=== PATIENT | female | born 1990 | race African-American/Black ===

== ENCOUNTER 2024-05-01 09:11 | Emergency (ER) | payer MEDICAID, SELFPAY ==
[2024-05-01 09:23] VITALS: BP 130/99; PULSE 110; TEMP 36.8; O2SAT 100; BMI 34.6
--- NOTE | 2024-05-01 10:30 | ED.GENADUL1 ---
HPI HPI - General Adult General Chief complaint: Abdominal Pain Stated complaint: ABDOMINAL PAIN, NAUSEA Time Seen by Provider: 05/01/24 09:49 Source: patient Mode of arrival: walk-in History of Present Illness HPI narrative: 33-year-old female to the emergency department with chief complaint of right upper quadrant pain. She reports it is a constant dull ache. She reports some mild nausea associated. She reports she has a history of both pancreatitis and kidney stones. She denies any fever, sweats, chills. She is in town visiting from [place]. She is s/p cholecystectomy remotely. She reports some blood in the urine. Related Data Home Medications ?Medication ?Instructions ?Recorded ?Confirmed medroxyprogesterone 10 mg tablet 10 mg PO BID 05/01/24 05/01/24 (Provera) Previous Rx's ?Medication ?Instructions ?Recorded cephalexin 500 mg capsule 500 mg PO BID 5 days #10 caps 05/01/24 Allergies Allergy/AdvReac Type Severity Reaction Status Date / Time ibuprofen Allergy Severe Hives Verified 05/01/24 09:33 ketamine Allergy Severe hives Verified 05/01/24 09:33 ketorolac (From Toradol) Allergy Severe Hives Verified 05/01/24 09:33 aspirin AdvReac Severe Hives Verified 05/01/24 09:33 droperidol AdvReac Intermediate Hallucinati Verified 05/01/24 09:33 ng haloperidol (From Haldol) AdvReac Intermediate Hallucinati Verified 05/01/24 09:33 ng metoclopramide (From Reglan) AdvReac Intermediate Hallucinati Verified 05/01/24 09:33 ng prochlorperazine (From AdvReac Intermediate Hallucinati Verified 05/01/24 09:33 Compazine) ng IV contrast AdvReac Severe Hives Uncoded 05/01/24 09:33 Opioid HPI Opioid Management Most Recent Opioid Data: Last Pain Scale 8 05/01/24 10:41 05/01/24 Last ED Pain Assessment 05/01/24 09:54 Last MAR Pain Assessment 05/01/24 10:41 Review of Systems ROS Status of ROS 10 or more systems reviewed and unremarkable except as noted in history and below [facility] Medical History (Updated 05/01/24 @ 11:38 by Darrin Pratt MD) History of biliary stent insertion ?Z98.890 - Other specified postprocedural states (ICD-10) Pancreatitis ?K85.90 - Acute pancreatitis without necrosis or infection, unspecified (ICD-10) Social History Little interest or pleasure in doing things: not at all Feeling down, depressed, or hopeless: not at all Exam Narrative Exam Narrative: VITALS: I have reviewed the triage vital signs. GENERAL: Well developed, well appearing adult in no acute distress. Child at the bedside. NEURO: Alert and oriented. Moves all extremities. Face is symmetric and expressive. EYES: PERRL. No scleral icterus or conjunctival injection. No discharge. HENT: Normocephalic, atraumatic. Hearing is grossly intact. Nares grossly patent and without discharge. Mucous membranes moist. NECK: No JVD. Patient moves neck without restriction. CARDIO: Rhythm regular. Normal rate. No murmur, rub, or gallop. Pulses equal bilaterally in the upper and lower extremity. No lower extremity edema. PULM: Lungs clear to auscultation in all levy. No wheezes, rales, or rhonchi. No conversational dyspnea. No splinting, stridor, or accessory muscle use. GI/: Abdomen is soft and non-tender. Normoactive bowel sounds. EXTREMITIES: Symmetric muscle bulk. No joint swelling. No clubbing, cyanosis, or deformity. SKIN: Warm and dry. Normal turgor. No rash or lesions appreciated. PSYCH: Mood, affect, and interaction is appropriate to the setting. Constitutional Vital Signs, click to edit/add: Last Vital Signs Temp 98.2 F 05/01/24 09:23 Pulse 110 H 05/01/24 09:23 Resp 16 05/01/24 09:23 BP 130/99 H 05/01/24 09:23 Pulse Ox 100 05/01/24 09:23 O2 Del Method Room Air 05/01/24 09:23 Course Vital Signs Vital signs: Vital Signs Temperature 98.2 F 05/01/24 09:23 Pulse Rate 110 H 05/01/24 09:23 Respiratory Rate 16 05/01/24 09:23 Blood Pressure 130/99 H 05/01/24 09:23 Pulse Oximetry 100 05/01/24 09:23 Oxygen Delivery Method Room Air 05/01/24 09:23 Temperature 98.2 F 10/14/24 09:23 Pulse Rate 110 H 05/01/24 09:23 Respiratory Rate 16 05/01/24 09:23 Blood Pressure 130/99 H 05/01/24 09:23 Pulse Oximetry 100 05/01/24 09:23 Oxygen Delivery Method Room Air 05/01/24 09:23 Medical Decision Making MDM Narrative Medical decision making narrative: Well-appearing 33-year-old female to the emergency department with chief complaint of right upper quadrant abdominal pain. Vital stable, the patient is afebrile. Her abdominal examination is benign. She is in no distress in the room. Child at the bedside. She reports that she has a ride home. I did review her records in [facility]. She has had 2 emergency department visits in the month of April on 04/20, 04/25. She was also seen in March on the , , 16, 13, 12, 11, 9, 3 in various emergency departments across the [facility]. She had multiple negative workups, including multiple negative CT scans. There seems to be an abnormal pattern regarding abdominal pain and ED presentations in this patient. Basic labs are ordered as medical screening exam. Will give her the benefit of doubt and treat the symptoms with oral medications. Lab work is unremarkable. Urinalysis is concerning for infection. Patient needed to leave and hurry and notified nurse. I went discussed findings with her. Will treat her with Keflex for UTI. She will follow-up with her doctors in [place]. Return precautions were discussed. All questions were answered. Patient was discharged home. Medical Records Medical records reviewed: Yes I reviewed the patient's medical records Lab Data Lab results reviewed: Yes I reviewed the patient's lab results Labs: Lab Results 05/01/24 05/01/24 Range/Units 10:27 10:40 WBC 4.4 (4.0-11.0) 10^3/uL RBC 4.91 (4.20-5.40) 10^6/uL Hgb 12.6 (12.0-16.0) g/dL Hct 41.1 (36.0-48.0) % MCV 83.7 (81.0-99.0) fL MCH 25.7 L (26.7-34.0) pg MCHC 30.7 (29.9-35.2) g/dL RDW 13.6 (11.0-15.0) % Plt Count 208 (150-450) 10^3/uL MPV 8.3 L (9.5-13.5) fL Neut % (Auto) 70.0 (43.0-75.0) % Lymph % (Auto) 21.2 (20.5-60.0) % [place] % (Auto) 6.6 (1.7-12.0) % Eos % (Auto) 1.8 (0.9-7.0) % Baso % (Auto) 0.2 (0.2-2.0) % Neut # (Auto) 3.1 (1.4-6.5) 10^3/uL Lymph # (Auto) 0.9 L (1.2-3.8) 10^3/uL [place] # (Auto) 0.3 (0.3-0.8) 10^3/uL Eos # (Auto) 0.1 (0.0-0.7) 10^3/uL Baso # (Auto) 0.0 (0.0-0.1) 10^3/uL Abs Immat Gran (auto) 0.01 (0.00-0.03) 10^3/uL Imm/Tot Granulo (auto) 0.2 (0.0-0.5) % Sodium 140 (136-145) mmol/L Potassium 4.7 (3.5-5.1) mmol/L Chloride 102 (98-107) mmol/L Carbon Dioxide 29.4 (21.0-32.0) mmol/L Anion Gap 13.3 BUN 9.0 (7.0-18.0) mg/dL Creatinine 0.85 (0.55-1.02) mg/dL Est GFR ( Amer) >60 (>=60 mL/min/1.73m^2) Est GFR (Non-Af Amer) >60 (>=60 mL/min/1.73m^2) BUN/Creatinine Ratio 10.6 Glucose 96 (74-106) mg/dL Calcium 9.6 (8.5-10.1) mg/dL Total Bilirubin 0.2 (0.2-1.0) mg/dL AST 14 L (15-37) U/L ALT 20 (14-59) U/L Alkaline Phosphatase 96 (46-116) U/L Total Protein 8.5 H (6.4-8.2) g/dL Albumin 3.9 (3.4-5.0) g/dL Globulin 4.6 g/dL Albumin/Globulin Ratio 0.8 Lipase 19.0 (16.0-77.0) U/L Serum HCG, Qual Negative (NEGATIVE) Urine Color Lt. yellow (YELLOW) Urine Clarity Clear (CLEAR) Urine pH 6.5 (5.0-9.0) Ur Specific [place] 1.020 (1.005-1.025) Urine Protein Negative (NEG/TRACE) mg/dL Urine Glucose (UA) Negative (NEGATIVE) mg/dL Urine Ketones Negative (NEGATIVE) mg/dL Urine Occult Blood Trace-i (NEGATIVE) Urine Nitrite Negative (NEGATIVE) Urine Bilirubin Negative (NEGATIVE) Urine Urobilinogen 0.2 (0.2-1.0) EU/dL Ur Leukocyte Esterase Small A (NEGATIVE) Urine RBC 2-5 A (0-2) #/HPF Urine WBC 2-5 A (NONE SEEN) #/HPF Ur Squamous Epith Cells Few A (NONE/RARE) #/LPF Urine Crystals None seen (None Seen) #/HPF Urine Bacteria Small A (NONE SEEN) #/HPF Urine Casts None seen (NONE SEEN) #/LPF Urine Mucus Trace A (NONE SEEN) Ur Culture Indicated? Yes Discharge Plan Discharge Chief Complaint: Abdominal Pain Clinical Impression: Abdominal pain, chronic, epigastric, UTI (urinary tract infection) Patient Disposition: Home, Self-Care Time of Disposition Decision: 11:38 Condition: Good Mode of Transportation: Private Vehicle Prescriptions / Home Meds: New cephalexin 500 mg capsule 500 mg PO BID 5 Days Qty: 10 0RF No Action medroxyprogesterone [Provera] 10 mg tablet 10 mg PO BID Print Language: Bengali Instructions: Urinary Tract Infection in Women (DC) Referrals: Physician,Non-Staff, MD [Primary Care Provider] - 1 week Discharge Date/Time: 05/01/24 11:46
[2024-05-01 10:38] LABS: Bilirubin Urine NEGATIVE (NEGATIVE); Blood Urine TRACE-I (NEGATIVE); Clarity Urine CLEAR (CLEAR); Color Urine LT. YELLOW (YELLOW); Glucose Urine UA NEGATIVE (NEGATIVE); Ketones Urine NEGATIVE (NEGATIVE); Leukocyte Esterase Urine SMALL (NEGATIVE); Nitrite Urine NEGATIVE (NEGATIVE); Protein Urine NEGATIVE (NEG/TRACE); Urobilinogen Urine 0.2 EU/dL (0.2-1.0); pH Urine 6.5 (5.0-9.0)
[2024-05-01 10:39] LABS: Urine Microscopic Indicated YES
[2024-05-01] MEDS: DICYCLOMINE HCL 20 MG/2 ML VIAL IM (10:41)
[2024-05-01] MEDS: OXYCODONE HCL/ACETAMINOPHEN 5MG/325MG 1 TAB PO (10:41)
[2024-05-01] MEDS: ONDANSETRON 4 MG RAPDIS TABLET SL (10:41)
[2024-05-01 10:45] LABS: Bacteria Urine SMALL #/HPF (NONE SEEN); Cast Seen? NONE SEEN #/LPF (NONE SEEN); Crystals Seen? None Seen #/HPF (None Seen); Mucus Urine TRACE (NONE SEEN); Squamous Epithelial Cell Urine FEW #/LPF (NONE/RARE); Urine Culture Indicated YES
[2024-05-01 10:48] LABS: Basophils Percent Auto 0.2 % (0.2-2.0); Eosinophils Absolute Auto 0.1 10^3/uL (0.0-0.7); Eosinophils Percent Auto 1.8 % (0.9-7.0); Hematocrit 41.1 % (36.0-48.0); Hemoglobin 12.6 g/dL (12.0-16.0); Immature Granulocytes Abs Auto 0.01 10^3/uL (0.00-0.03); Immature Granulocytes Pct Auto 0.2 % (0.0-0.5); Lymphocytes Absolute Auto 0.9 10^3/uL (1.2-3.8); Lymphocytes Percent Auto 21.2 % (20.5-60.0); Mean Corpuscular HGB Conc 30.7 g/dL (29.9-35.2); Mean Corpuscular Hemoglobin 25.7 pg (26.7-34.0); Mean Corpuscular Volume 83.7 fL (81.0-99.0); Mean Platelet Volume 8.3 fL (9.5-13.5); Monocytes Absolute Auto 0.3 10^3/uL (0.3-0.8); Monocytes Percent Auto 6.6 % (1.7-12.0); Neutrophils Absolute Auto 3.1 10^3/uL (1.4-6.5); Platelet Count 208 10^3/uL (150-450); Red Blood Count 4.91 10^6/uL (4.20-5.40); Red Cell Distribution Width 13.6 % (11.0-15.0); White Blood Count 4.4 10^3/uL (4.0-11.0)
[2024-05-01 11:01] LABS: HCG Qualitative NEGATIVE (NEGATIVE); Internal Control Within Normal Limits
[2024-05-01 11:14] LABS: Alanine Aminotransferase 20 U/L (14-59); Albumin Globulin Ratio 0.8; Albumin Level 3.9 g/dL (3.4-5.0); Alkaline Phosphatase 96 U/L (46-116); Anion Gap 13.3; Aspartate Amino Transferase 14 U/L (15-37); BUN Creatinine Ratio 10.6; Bilirubin Total 0.2 mg/dL (0.2-1.0); Calcium 9.6 mg/dL (8.5-10.1); Carbon Dioxide 29.4 mmol/L (21.0-32.0); Chloride 102 mmol/L (98-107); Estimated GFR (African America >60 (>=60 mL/min/1.73m^2); Estimated GFR (Non-African Ame >60 (>=60 mL/min/1.73m^2); Globulin 4.6 g/dL; Glucose 96 mg/dL (74-106); Potassium 4.7 mmol/L (3.5-5.1); Sodium 140 mmol/L (136-145); Total Protein 8.5 g/dL (6.4-8.2)
== END 2024-05-01 11:46 | disposition home or self-care (01) ==
PROVIDERS: Emergency Provider Student in an Organized Health Care Education/Training Program
DX: R10.13 Epigastric pain (principal); N39.0 Urinary tract infection, site not specified; Z87.442 Personal history of urinary calculi; Z90.49 Acquired absence of other specified parts of digestive tract
CPT/HCPCS: 36415; 80053; 81001; 83690; 84703; 85025; 87086; 96372; 99284; J0500; Q0162

== ENCOUNTER 2024-07-26 10:24 | Emergency (ER) | payer MEDICAID, SELFPAY ==
[2024-07-26 10:45] VITALS: BP 126/79; PULSE 110; TEMP 36.9; O2SAT 96; BMI 34.6
--- NOTE | 2024-07-26 11:07 | CT_ITS ---
[address] [address] Patient Name: FRANCES BERMEO MRN: [id number] date: 1990 Sex: F Assigned Patient Location: ER Current Patient Location: ER Accession/Order Number: [id number] Exam Date: 07/26/2024 11:37 Report Date: 07/26/2024 12:16 At the request of: ROGELIO MUNIZ Procedure: CT abdomen pelvis wo con EXAMINATION: CT abdomen pelvis wo con HISTORY: RUQ pain COMPARISON: 07/13/2024 TECHNIQUE: Axial, Coronal, and Sagittal images were created without IV contrast. Dose reduction techniques were achieved by using automated exposure control and/or adjustment of mA and/or kV according to patient size and/or use of iterative reconstruction technique. FINDINGS: LUNG BASES: No visible pulmonary or pleural disease. LIVER: No enlargement, atrophy, abnormal density, or significant focal lesion. BILIARY: Surgical clips from cholecystectomy PANCREAS: No lesion, fluid collection, ductal dilatation, or atrophy. SPLEEN: No enlargement or focal lesion. ADRENALS: 4.4 cm fatty mass of the right adrenal gland. Normal left KIDNEYS: No mass, obstruction, or calcification. BOWEL/MESENTERY: No visible mass, obstruction, or bowel wall thickening. Normal appendix AORTA/VASCULAR: No aneurysm or dissection. RETROPERITONEUM: No mass or adenopathy. LYMPH NODES: No adenopathy. URINARY BLADDER: No visible focal wall thickening, lesion, or calculus. PELVIC ORGANS: No visible mass. Pelvic organs appropriate for patient age. ABDOMINAL WALL: No mass or hernia. BONES: No bony lesion or fracture. OTHER: Negative. CT/CT abdomen pelvis wo con IMPRESSION: Stable 4.4 cm right adrenal myelolipoma Electronically authenticated by: CONSTANTIN GAR Date: 07/26/2024 12:16
[2024-07-26 11:14] LABS: Bilirubin Urine NEGATIVE (NEGATIVE); Blood Urine SMALL (NEGATIVE); Clarity Urine CLEAR (CLEAR); Color Urine LT. YELLOW (YELLOW); Glucose Urine UA NEGATIVE (NEGATIVE); Ketones Urine NEGATIVE (NEGATIVE); Leukocyte Esterase Urine SMALL (NEGATIVE); Nitrite Urine NEGATIVE (NEGATIVE); Protein Urine NEGATIVE (NEG/TRACE); Specific Gravity Urine 1.025 (1.005-1.025); Urobilinogen Urine 0.2 EU/dL (0.2-1.0)
[2024-07-26 11:16] LABS: Urine Microscopic Indicated YES
[2024-07-26 11:17] LABS: HCG Qualitative Urine* NEGATIVE (NEGATIVE); Internal Control Within Normal Limits
[2024-07-26 11:21] LABS: Bacteria Urine SMALL #/HPF (NONE SEEN); Mucus Urine NONE SEEN (NONE SEEN); RBC Urine 0-2 #/HPF (0-2); Squamous Epithelial Cell Urine FEW #/LPF (NONE/RARE); Urine Culture Indicated YES
[2024-07-26 11:27] LABS: Basophils Percent Auto 0.3 % (0.2-2.0); Eosinophils Absolute Auto 0.1 10^3/uL (0.0-0.7); Eosinophils Percent Auto 1.5 % (0.9-7.0); Hematocrit 40.8 % (36.0-48.0); Hemoglobin 12.2 g/dL (12.0-16.0); Immature Granulocytes Abs Auto 0.01 10^3/uL (0.00-0.03); Immature Granulocytes Pct Auto 0.3 % (0.0-0.5); Lymphocytes Absolute Auto 0.9 10^3/uL (1.2-3.8); Lymphocytes Percent Auto 21.6 % (20.5-60.0); Mean Corpuscular HGB Conc 29.9 g/dL (29.9-35.2); Mean Corpuscular Hemoglobin 25.2 pg (26.7-34.0); Mean Corpuscular Volume 84.1 fL (81.0-99.0); Mean Platelet Volume 9.5 fL (9.5-13.5); Monocytes Absolute Auto 0.4 10^3/uL (0.3-0.8); Monocytes Percent Auto 9.8 % (1.7-12.0); Neutrophils Absolute Auto 2.7 10^3/uL (1.4-6.5); Neutrophils Percent Auto 66.5 % (43.0-75.0); Platelet Count 267 10^3/uL (150-450); Red Blood Count 4.85 10^6/uL (4.20-5.40); Red Cell Distribution Width 13.5 % (11.0-15.0)
[2024-07-26] MEDS: ONDANSETRON PF 4 MG/2 ML VIAL IV ×2 (11:27→12:57)
[2024-07-26] MEDS: 0.9 % SODIUM CHLORIDE 1,000 ML 1000 ML IV (11:27)
[2024-07-26] MEDS: MORPHINE SULFATE 4 MG/ML VIAL IV ×2 (11:27→12:58)
--- NOTE | 2024-07-26 11:33 | ED_ITS ---
HPI HPI - General Adult General Chief complaint: Abdominal Pain Stated complaint: nausea/vomiting, blood in urine Time Seen by Provider: 07/26/24 10:26 Source: patient Mode of arrival: walk-in Limitations: no limitations History of Present Illness HPI narrative: Patient presents ED complaining of abdominal pain since Wednesday. She said it has been stabbing and pain in the right upper quadrant going through to the back. She said this feels similar to her pancreatitis and also similar to kidney stones that she has had both in the past. She reports nausea vomiting and not able to keep anything down. She has tried to do small sips of water but if she drinks anything more than that she says she vomits. No fevers. She denies diarrhea or constipation. Denies UTI symptoms other than blood in the urine but no pain. She said she was trying to treat herself at home with Maalox Pepcid and lidocaine patches but she has not been getting any better. She took Tylenol as well as she is allergic to NSAIDs. Patient is resting comfortably in the bed in no acute distress Related Data Home Medications ?Medication ?Instructions ?Recorded ?Confirmed medroxyprogesterone 10 mg tablet 10 mg PO BID 05/01/24 07/26/24 (Provera) cyclobenzaprine 10 mg tablet 10 mg PO TID 07/26/24 07/26/24 Previous Rx's ?Medication ?Instructions ?Recorded ondansetron 4 mg disintegrating 4 mg PO DAILY PRN nausea and 07/26/24 tablet vomiting #15 tabs Allergies Allergy/AdvReac Type Severity Reaction Status Date / Time ibuprofen Allergy Severe Hives Verified 05/01/24 09:33 ketamine Allergy Severe hives Verified 05/01/24 09:33 ketorolac (From Toradol) Allergy Severe Hives Verified 05/01/24 09:33 aspirin AdvReac Severe Hives Verified 05/01/24 09:33 droperidol AdvReac Intermediate Hallucinati Verified 05/01/24 09:33 ng haloperidol (From Haldol) AdvReac Intermediate Hallucinati Verified 05/01/24 09:33 ng metoclopramide (From Reglan) AdvReac Intermediate Hallucinati Verified 05/01/24 09:33 ng prochlorperazine (From AdvReac Intermediate Hallucinati Verified 05/01/24 09:33 Compazine) ng IV contrast AdvReac Severe Hives Uncoded 05/01/24 09:33 Opioid HPI Opioid Management Most Recent Opioid Data: Last Pain Scale 8 05/01/24 10:41 05/01/24 Review of Systems ROS Status of ROS 10 or more systems reviewed and unremark able except as noted in history and below [facility] Medical History (Updated 07/26/24 @ 12:33 by Tabatha Bello DO) History of biliary stent insertion ?Z98.890 - Other specified postprocedural states (ICD-10) Pancreatitis ?K85.90 - Acute pancreatitis without necrosis or infection, unspecified (ICD- 10) Social History Little interest or pleasure in doing things: not at all Feeling down, depressed, or hopeless: not at all Exam Narrative Exam Narrative: Time Seen: [] Vital Signs: [Per nurse's notes.] General: [Alert] Skin: [Warm, dry, no rash.] Head: [Normocephalic, atraumatic.] Neck: [Supple, trachea midline.] Eye: [Pupils are equal, round and reactive to light, extraocular movements are intact, normal conjunctiva.] Ears, nose, mouth and throat: oral mucosa moist. Cardiovascular: [Regular rate and rhythm, no murmur.] Respiratory: [Lungs are clear to auscultation, respirations are non-labored, breath sounds are equal.] Chest wall: [No tenderness, no deformity.] Gastrointestinal: [Soft, right upper quadrant pain, non distended, normal bowel sounds.] MSK: 5 out of 5 muscle strength x 4 extremities no calf pain or edema Lymphatics: [No lymphadenopathy.] Psychiatric: [Cooperative, appropriate mood & affect.] Neurological: [Alert and oriented to person, place, time, and situation, no focal neurological deficit observed.] Constitutional Vital Signs, click to edit/add: Last Vital Signs Temp 98.4 F 07/26/24 10:45 Pulse 110 H 07/26/24 10:45 Resp 16 07/26/24 10:45 BP 126/79 07/26/24 10:45 Pulse Ox 96 07/26/24 10:45 O2 Del Method Room Air 07/26/24 10:45 Course Vital Signs Vital signs: Vital Signs Temperature 98.4 F 07/26/24 10:45 Pulse Rate 110 H 07/26/24 10:45 Respiratory Rate 16 07/26/24 10:45 Blood Pressure 126/79 07/26/24 10:45 Pulse Oximetry 96 07/26/24 10:45 Oxygen Delivery Method Room Air 07/26/24 10:45 Temperature 98.4 F 07/26/24 10:45 Pulse Rate 110 H 07/26/24 10:45 Respiratory Rate 16 07/26/24 10:45 Blood Pressure 126/79 07/26/24 10:45 Pulse Oximetry 96 07/26/24 10:45 Oxygen Delivery Method Room Air 07/26/24 10:45 Medical Decision Making MDM Narrative Medical decision making narrative: Patient's labs are negative for acute. No evidence of acute pancreatitis. CT scan does not show pancreatitis or kidney stone. Patient asked for another pain medication and nausea medication. She does have a GI doctor that I told her to follow-up with. Return to ED if worsening symptoms otherwise hydrate at home and take the nausea medicine as needed. Patient is comfortable care plan for home and stable appearing Differential Diagnosis Differential Diagnosis: Gastroenteritis pancreatitis viral illness kidney stone Lab Data Lab results reviewed: Yes I reviewed the patient's lab results Labs: Lab Results 07/26/24 07/26/24 Range/Units 10:57 11:15 WBC 4.0 (4.0-11.0) 10^3/uL RBC 4.85 (4.20-5.40) 10^6/uL Hgb 12.2 (12.0-16.0) g/dL Hct 40.8 (36.0-48.0) % MCV 84.1 (81.0-99.0) fL MCH 25.2 L (26.7-34.0) pg MCHC 29.9 (29.9-35.2) g/dL RDW 13.5 (11.0-15.0) % Plt Count 267 (150-450) 10^3/uL MPV 9.5 (9.5-13.5) fL Neut % (Auto) 66.5 (43.0-75.0) % Lymph % (Auto) 21.6 (20.5-60.0) % [place] % (Auto) 9.8 (1.7-12.0) % Eos % (Auto) 1.5 (0.9-7.0) % Baso % (Auto) 0.3 (0.2-2.0) % Neut # (Auto) 2.7 (1.4-6.5) 10^3/uL Lymph # (Auto) 0.9 L (1.2-3.8) 10^3/uL [place] # (Auto) 0.4 (0.3-0.8) 10^3/uL Eos # (Auto) 0.1 (0.0-0.7) 10^3/uL Baso # (Auto) 0.0 (0.0-0.1) 10^3/uL Abs Immat Gran (auto) 0.01 (0.00-0.03) 10^3/uL Imm/Tot Granulo (auto) 0.3 (0.0-0.5) % Sodium 139 (136-145) mmol/L Potassium 4.5 (3.5-5.1) mmol/L Chloride 104 (98-107) mmol/L Carbon Dioxide 25.6 (21.0-32.0) mmol/L Anion Gap 13.9 BUN 4.0 L (7.0-18.0) mg/dL Creatinine 0.72 (0.55-1.02) mg/dL Est GFR ( Amer) >60 (>=60 mL/min/1.73m^2) Est GFR (Non-Af Amer) >60 (>=60 mL/min/1.73m^2) BUN/Creatinine Ratio 5.6 Glucose 95 (74-106) mg/dL Calcium 9.4 (8.5-10.1) mg/dL Total Bilirubin 0.2 (0.2-1.0) mg/dL AST 12 L (15-37) U/L ALT 14 (14-59) U/L Alkaline Phosphatase 84 (46-116) U/L Total Protein 8.4 H (6.4-8.2) g/dL Albumin 4.1 (3.4-5.0) g/dL Globulin 4.3 g/dL Albumin/Globulin Ratio 1.0 Lipase 21.0 (16.0-77.0) U/L Urine Color Lt. yellow (YELLOW) Urine Clarity Clear (CLEAR) Urine pH 6.0 (5.0-9.0) Ur Specific [place] 1.025 (1.005-1.025) Urine Protein Negative (NEG/TRACE) mg/dL Urine Glucose (UA) Negative (NEGATIVE) mg/dL Urine Ketones Negative (NEGATIVE) mg/dL Urine Occult Blood Small A (NEGATIVE) Urine Nitrite Negative (NEGATIVE) Urine Bilirubin Negative (NEGATIVE) Urine Urobilinogen 0.2 (0.2-1.0) EU/dL Ur Leukocyte Esterase Small A (NEGATIVE) Urine RBC 0-2 (0-2) #/HPF Urine WBC 2-5 A (NONE SEEN) #/HPF Ur Squamous Epith Cells Few A (NONE/RARE) #/LPF Urine Bacteria Small A (NONE SEEN) #/HPF Urine Mucus None seen (NONE SEEN) Ur Culture Indicated? Yes Urine HCG, Qual Negative (NEGATIVE) Imaging Data CT scan - abdomen: Radiologist's impression: ITS Impressions Abdomen/Pelvis CT 07/26/24 11:07 IMPRESSION: Stable 4.4 cm right adrenal myelolipoma Electronically authenticated by: CONSTANTIN GAR Date: 07/26/2024 12:16 Discharge Plan Discharge Chief Complaint: Abdominal Pain Clinical Impression: Abdominal pain Patient Disposition: Home, Self-Care Time of Disposition Decision: 12:33 Condition: Good Mode of Transportation: Private Vehicle Prescriptions / Home Meds: New ondansetron 4 mg tablet,disintegrating 4 mg PO DAILY PRN (Reason: nausea and vomiting) Qty: 15 0RF No Action cyclobenzaprine 10 mg tablet 10 mg PO TID medroxyprogesterone [Provera] 10 mg tablet 10 mg PO BID Print Language: [place] Instructions: Abdominal Pain (ED) Referrals: Physician,Non-Staff, MD [Primary Care Provider] - 1 week
[2024-07-26 11:42] LABS: Alanine Aminotransferase 14 U/L (14-59); Albumin Level 4.1 g/dL (3.4-5.0); Alkaline Phosphatase 84 U/L (46-116); Anion Gap 13.9; Aspartate Amino Transferase 12 U/L (15-37); BUN Creatinine Ratio 5.6; Bilirubin Total 0.2 mg/dL (0.2-1.0); Calcium 9.4 mg/dL (8.5-10.1); Carbon Dioxide 25.6 mmol/L (21.0-32.0); Chloride 104 mmol/L (98-107); Estimated GFR (African America >60 (>=60 mL/min/1.73m^2); Estimated GFR (Non-African Ame >60 (>=60 mL/min/1.73m^2); Globulin 4.3 g/dL; Glucose 95 mg/dL (74-106); Potassium 4.5 mmol/L (3.5-5.1); Sodium 139 mmol/L (136-145); Total Protein 8.4 g/dL (6.4-8.2)
[2024-07-26 13:10] VITALS: PULSE 92; O2SAT 99
[2024-07-27 08:12] LABS: BOX Test Reference Lab FIRELANDS
== END 2024-07-26 13:15 | disposition home or self-care (01) ==
PROVIDERS: Emergency Provider Emergency Medicine
DX: R10.11 Right upper quadrant pain (principal); Z87.442 Personal history of urinary calculi; D17.79 Benign lipomatous neoplasm of other sites
CPT/HCPCS: 36415; 74176; 80053; 81001; 83690; 84703; 85025; 87086; 96361; 96374; 96375; 96376; 99284; J2270; J2405

== ENCOUNTER 2024-08-01 14:38 | Emergency (ER) | payer MEDICAID, SELFPAY ==
[2024-08-01 14:41] VITALS: BP 119/75; PULSE 109; TEMP 37.2; O2SAT 100; BMI 34.6
--- NOTE | 2024-08-01 14:49 | US_ITS ---
The [address] [address] Patient Name: FRANCES BERMEO MRN: [id number] date: 1990 Sex: F Assigned Patient Location: ED.MAIN Current Patient Location: ER Accession/Order Number: [id number] Exam Date: 08/01/2024 15:45 Report Date: 08/01/2024 16:16 At the request of: KRISTI NIETO Procedure: US right upper quadrant EXAMINATION: US right upper quadrant HISTORY: Abdominal pain ; right upper quadrant pain, bloody stool and urine, nausea and vomiting COMPARISON: CT abdomen pelvis 07/26/2024 TECHNIQUE: Transabdominal evaluation of the right upper quadrant. FINDINGS: LIVER: Fatty infiltration of the liver. Color Doppler demonstrates patent hepatic veins. PORTAL VEIN: Duplex Doppler demonstrates normal hepatopetal flow pattern with flow velocity averaging 39 cm/s. GALLBLADDER: Cholecystectomy. BILIARY: No abnormal dilation or stones. Common bile duct diameter is within normal limits. PANCREAS: Limited evaluation. No visible mass, abnormal atrophy, or duct dilation. KIDNEY: No hydronephrosis. No visible mass or stones. Size: 10.5 x 5.60 3.5 cm OTHER: Known 4.7 cm fatty adrenal mass favoring a benign adenoma. US/US right upper quadrant IMPRESSION: 1. No acute or suspicious findings to account for patient's symptoms. Electronically authenticated by: ALANNAH NOYOLA Date: 08/01/2024 16:16
--- NOTE | 2024-08-01 15:01 | ED.ABDPAIN1 ---
HPI - Abdominal Pain General Chief Complaint: Abdominal Pain Stated Complaint: ABDOMINAL PAIN RIGHT SIDE BLOOD IN URINE AND STOOL Time Seen by Provider: 08/01/24 14:40 Source: patient Mode of arrival: walk-in History of Present Illness HPI narrative: Patient is a 33-year-old female who returns to the emergency department for continued pain in the right upper quadrant. She was seen in this emergency department 6 days ago for the same. She states she continues to have vomiting and cannot hold any medications or food down. She has been able to take some sips of Gatorade. No fevers or upper respiratory symptoms. She has been seen in this emergency department previously for epigastric and right upper quadrant pain in April of last year. She is from the [place] area and states she has a GI doctor in [place], she states she has endoscopy and colonoscopy scheduled with her GI doctor next week. She states 3 days ago she noticed bright red blood in her stool and states she is urinating blood as well. She has no concern for . She has been using Zofran that she was prescribed in this emergency department last week with Benadryl to try to help her nausea. Pharmacy records and OARRS report show this patient has had multiple narcotic prescriptions from multiple providers in multiple cities over the last 2 years. Related Data Home Medications ?Medication ?Instructions ?Recorded ?Confirmed cyclobenzaprine 10 mg tablet 10 mg PO TID 08/01/24 08/01/24 medroxyprogesterone 10 mg tablet 10 mg PO BID 08/01/24 08/01/24 (Provera) Previous Rx's ?Medication ?Instructions ?Recorded ondansetron 4 mg disintegrating 4 mg PO DAILY PRN nausea and 07/26/24 tablet vomiting #15 tabs ciprofloxacin HCl 500 mg tablet 500 mg PO BID 5 days #10 tabs 08/01/24 (Cipro) hyoscyamine sulfate 0.125 mg 0.125 mg PO Q6H PRN abdominal pain 08/01/24 tablet (Levsin) #12 tabs promethazine 25 mg tablet 25 mg PO Q6H PRN nausea and 08/01/24 vomiting #12 tabs Allergies Allergy/AdvReac Type Severity Reaction Status Date / Time ibuprofen Allergy Severe Hives Verified 05/01/24 09:33 ketamine Allergy Severe hives Verified 05/01/24 09:33 ketorolac (From Toradol) Allergy Severe Hives Verified 05/01/24 09:33 aspirin AdvReac Severe Hives Verified 05/01/24 09:33 droperidol AdvReac Intermediate Hallucinati Verified 05/01/24 09:33 ng haloperidol (From Haldol) AdvReac Intermediate Hallucinati Verified 05/01/24 09:33 ng metoclopramide (From Reglan) AdvReac Intermediate Hallucinati Verified 05/01/24 09:33 ng prochlorperazine (From AdvReac Intermediate Hallucinati Verified 05/01/24 09:33 Compazine) ng IV contrast AdvReac Severe Hives Uncoded 05/01/24 09:33 Review of Systems ROS Constitutional Denies: fever or chills Ears, nose, mouth, and throat Denies: throat pain or nasal congestion Cardiovascular Denies: chest pain Respiratory Denies: shortness of breath or cough Gastrointestinal Reports: abdominal pain, nausea and vomiting; Denies: diarrhea Integumentary/Breast Denies: rash Neurological Denies: numbness in extremities or weakness in extremities Hematologic/Lymphatic Denies: easy bruising or easy bleeding [facility] Medical History (Updated 08/01/24 @ 16:19 by AMBIKA Mooney) History of biliary stent insertion ?Z98.890 - Other specified postprocedural states (ICD-10) Pancreatitis ?K85.90 - Acute pancreatitis without necrosis or infection, unspecified (ICD-10) Social History Little interest or pleasure in doing things: not at all Feeling down, depressed, or hopeless: not at all Exam Narrative Exam Narrative: Gen.: Awake, alert, in no distress Head: Normocephalic, atraumatic ENT: Moist mucous membranes Respiratory: No respiratory distress, lungs clear bilaterally Cardio: Regular rate and rhythm Gastrointestinal: Abdomen is soft, nondistended and tender to palpation in the right upper quadrant with no pain out of proportion on exam, no guarding or rebound. Rectal exam performed with Megan Daugherty RN at bedside throughout the duration of the exam. No active bleeding per rectum. Light brown stool noted. Extremities: Moves extremities equally Psych: Normal mood and affect Neuro: No focal neuro deficit Skin: Warm, dry, intact Constitutional Vital Signs, click to edit/add: Last Vital Signs Temp 99.0 F 08/01/24 14:41 Pulse 109 H 08/01/24 14:41 Resp 18 08/01/24 14:41 BP 119/75 08/01/24 14:41 Pulse Ox 100 08/01/24 14:41 O2 Del Method Room Air 08/01/24 14:41 Course Vital Signs Vital signs: Vital Signs Temperature 99.0 F 08/01/24 14:41 Pulse Rate 109 H 08/01/24 14:41 Respiratory Rate 18 08/01/24 14:41 Blood Pressure 119/75 08/01/24 14:41 Pulse Oximetry 100 08/01/24 14:41 Oxygen Delivery Method Room Air 08/01/24 14:41 Temperature 99.0 F 08/01/24 14:41 Pulse Rate 109 H 08/01/24 14:41 Respiratory Rate 18 08/01/24 14:41 Blood Pressure 119/75 08/01/24 14:41 Pulse Oximetry 100 08/01/24 14:41 Oxygen Delivery Method Room Air 08/01/24 14:41 MDM - Abdominal Pain MDM Narrative Medical decision making narrative: Patient was treated with pain medication, nausea medicine and IV fluids in the ER. She had no episodes of emesis in the emergency department and abdomen is soft and benign. OARRS report and prescription history shows the patient has been to multiple facilities and prescribed narcotics by multiple physicians in different cities. Her laboratory studies reviewed and noted today are within normal limits, she does have evidence of UTI, however she had a negative CT scan 6 days ago and right upper quadrant ultrasound shows no evidence of pyelonephritis around the kidney. She is discharged home with antibiotics, nausea medication and Levsin. On reevaluation by attending physician, she requested additional pain medication, as documentation from her previous visit show she did as well 1 week ago. I do not feel any additional narcotics are indicated for this patient. She has appropriate follow-up with her GI doctor in [place]. She was given additional Zofran and Bentyl prior to discharge. Return to the ER if symptoms change or worsen SHARED APC VISIT, PHYSICIAN ATTESTATION: [id number] I performed a substantive part of the MDM during the patient?s E/M visit. I personally evaluated and examined the patient. I personally made or approved the documented management plan and acknowledge its risk of complications. Medical Records Attestation: I reviewed the patient's medical records. Lab Data Attestation: I reviewed the patient's lab results. Labs: Lab Results 08/01/24 08/01/24 08/01/24 Range/Units 14:56 15:05 15:30 WBC 4.7 (4.0-11.0) 10^3/uL RBC 4.61 (4.20-5.40) 10^6/uL Hgb 11.9 L (12.0-16.0) g/dL Hct 38.6 (36.0-48.0) % MCV 83.7 (81.0-99.0) fL MCH 25.8 L (26.7-34.0) pg MCHC 30.8 (29.9-35.2) g/dL RDW 13.4 (11.0-15.0) % Plt Count 254 (150-450) 10^3/uL MPV 9.9 (9.5-13.5) fL Neut % (Auto) 70.3 (43.0-75.0) % Lymph % (Auto) 19.7 L (20.5-60.0) % [place] % (Auto) 7.9 (1.7-12.0) % Eos % (Auto) 1.7 (0.9-7.0) % Baso % (Auto) 0.2 (0.2-2.0) % Neut # (Auto) 3.3 (1.4-6.5) 10^3/uL Lymph # (Auto) 0.9 L (1.2-3.8) 10^3/uL [place] # (Auto) 0.4 (0.3-0.8) 10^3/uL Eos # (Auto) 0.1 (0.0-0.7) 10^3/uL Baso # (Auto) 0.0 (0.0-0.1) 10^3/uL Abs Immat Gran (auto) 0.01 (0.00-0.03) 10^3/uL Imm/Tot Granulo (auto) 0.2 (0.0-0.5) % PT 10.4 (9.0-11.6) sec INR 0.98 Sodium 139 (136-145) mmol/L Potassium 4.1 (3.5-5.1) mmol/L Chloride 103 (98-107) mmol/L Carbon Dioxide 28.9 (21.0-32.0) mmol/L Anion Gap 11.2 BUN 4.0 L (7.0-18.0) mg/dL Creatinine 0.75 (0.55-1.02) mg/dL Est GFR ( Amer) >60 (>=60 mL/min/1.73m^2) Est GFR (Non-Af Amer) >60 (>=60 mL/min/1.73m^2) BUN/Creatinine Ratio 5.3 Glucose 85 (74-106) mg/dL Lactate 1.1 (0.4-2.0) mmol/L Calcium 9.4 (8.5-10.1) mg/dL Total Bilirubin 0.3 (0.2-1.0) mg/dL AST 11 L (15-37) U/L ALT 14 (14-59) U/L Alkaline Phosphatase 85 (46-116) U/L Total Protein 8.2 (6.4-8.2) g/dL Albumin 4.0 (3.4-5.0) g/dL Globulin 4.2 g/dL Albumin/Globulin Ratio 1.0 Lipase 21.0 (16.0-77.0) U/L Serum HCG, Qual Negative (NEGATIVE) Urine Color Lt. yellow (YELLOW) Urine Clarity Sl cloudy (CLEAR) Urine pH 6.0 (5.0-9.0) Ur Specific [place] 1.020 (1.005-1.025) Urine Protein Negative (NEG/TRACE) mg/dL Urine Glucose (UA) Negative (NEGATIVE) mg/dL Urine Ketones Negative (NEGATIVE) mg/dL Urine Occult Blood Large A (NEGATIVE) Urine Nitrite Negative (NEGATIVE) Urine Bilirubin Negative (NEGATIVE) Urine Urobilinogen 0.2 (0.2-1.0) EU/dL Ur Leukocyte Esterase Moderate A (NEGATIVE) Urine RBC 20-50 A (0-2) #/HPF Urine WBC 5-10 A (NONE SEEN) #/HPF Ur Squamous Epith Cells Few A (NONE/RARE) #/LPF Urine Crystals None seen (None Seen) #/HPF Urine Bacteria Small A (NONE SEEN) #/HPF Urine Casts None seen (NONE SEEN) #/LPF Urine Mucus None seen (NONE SEEN) Ur Culture Indicated? Yes Stool Occult Blood Negative Urine Opiates Screen Positive A (NEGATIVE) Ur Buprenorphine Scrn Negative (NEGATIVE) Ur Oxycodone Screen Negative (NEGATIVE) Urine Methadone Screen Negative (NEGATIVE) Ur Barbiturates Screen Negative (NEGATIVE) U Tricyclic Antidepress Positive A (NEGATIVE) Ur Phencyclidine Scrn Negative (NEGATIVE) Ur Amphetamines Screen Negative (NEGATIVE) U Methamphetamines Scrn Negative (NEGATIVE) U Benzodiazepines Scrn Negative (NEGATIVE) Urine Cocaine Screen Negative (NEGATIVE) U Cannabinoids Screen Negative (NEGATIVE) Imaging Data US - abdomen: Attestation: I have reviewed the pertinent imaging results. Radiologist's impression: ITS Impressions Upper Quadrant Ultrasound 08/01/24 14:49 IMPRESSION: 1. No acute or suspicious findings to account for patient's symptoms. Electronically authenticated by: ALANNAH NOYOLA Date: 08/01/2024 16:16 Discharge Plan Discharge Chief Complaint: Abdominal Pain Clinical Impression: Chronic abdominal pain, UTI (urinary tract infection) Patient Disposition: Home, Self-Care Time of Disposition Decision: 16:19 Condition: Good Prescriptions / Home Meds: New ciprofloxacin HCl [Cipro] 500 mg tablet 500 mg PO BID 5 Days Qty: 10 0RF hyoscyamine sulfate [Levsin] 0.125 mg tablet 0.125 mg PO Q6H PRN (Reason: abdominal pain) Qty: 12 0RF promethazine 25 mg tablet 25 mg PO Q6H PRN (Reason: nausea and vomiting) Qty: 12 0RF No Action ondansetron 4 mg tablet,disintegrating 4 mg PO DAILY PRN (Reason: nausea and vomiting) Qty: 15 0RF cyclobenzaprine 10 mg tablet 10 mg PO TID medroxyprogesterone [Provera] 10 mg tablet 10 mg PO BID Print Language: Cambodian Instructions: Urinary Tract Infection in Women (ED), Abdominal Pain (ED) Additional Instructions: Please follow up with your GI doctor for further evaluation Referrals: Physician,Non-Staff, MD [Primary Care Provider] - 1 week
[2024-08-01 15:16] LABS: Basophils Percent Auto 0.2 % (0.2-2.0); Eosinophils Absolute Auto 0.1 10^3/uL (0.0-0.7); Eosinophils Percent Auto 1.7 % (0.9-7.0); Hematocrit 38.6 % (36.0-48.0); Hemoglobin 11.9 g/dL (12.0-16.0); Immature Granulocytes Abs Auto 0.01 10^3/uL (0.00-0.03); Immature Granulocytes Pct Auto 0.2 % (0.0-0.5); Lymphocytes Absolute Auto 0.9 10^3/uL (1.2-3.8); Lymphocytes Percent Auto 19.7 % (20.5-60.0); Mean Corpuscular HGB Conc 30.8 g/dL (29.9-35.2); Mean Corpuscular Hemoglobin 25.8 pg (26.7-34.0); Mean Corpuscular Volume 83.7 fL (81.0-99.0); Mean Platelet Volume 9.9 fL (9.5-13.5); Monocytes Absolute Auto 0.4 10^3/uL (0.3-0.8); Monocytes Percent Auto 7.9 % (1.7-12.0); Neutrophils Absolute Auto 3.3 10^3/uL (1.4-6.5); Neutrophils Percent Auto 70.3 % (43.0-75.0); Platelet Count 254 10^3/uL (150-450); Red Blood Count 4.61 10^6/uL (4.20-5.40); Red Cell Distribution Width 13.4 % (11.0-15.0); White Blood Count 4.7 10^3/uL (4.0-11.0)
[2024-08-01 15:20] LABS: Internal Control Within Normal Limits; Occult Blood Negative
[2024-08-01] MEDS: FAMOTIDINE/PF 20 MG/2 ML VIAL IV (15:20)
[2024-08-01] MEDS: DIPHENHYDRAMINE HCL 50 MG/ML VIAL 12.5 MG IV (15:21)
[2024-08-01] MEDS: HYOSCYAMINE SULFATE 0.125 MG TAB.SUBL SL (15:21)
[2024-08-01] MEDS: ONDANSETRON PF 4 MG/2 ML VIAL IV ×2 (15:21→16:28)
[2024-08-01] MEDS: HYDROMORPHONE HCL 0.5 MG/0.5 ML SYRINGE IV (15:21)
[2024-08-01] MEDS: 0.9 % SODIUM CHLORIDE 1,000 ML 999 ML IV (15:22)
[2024-08-01 15:24] LABS: HCG Qualitative NEGATIVE (NEGATIVE); Internal Control Within Normal Limits
[2024-08-01 15:28] LABS: INR 0.98; Prothrombin Time 10.4 sec (9.0-11.6)
[2024-08-01 15:33] LABS: Lactate/Lactic Acid 1.1 mmol/L (0.4-2.0)
[2024-08-01 15:39] LABS: Alanine Aminotransferase 14 U/L (14-59); Alkaline Phosphatase 85 U/L (46-116); Anion Gap 11.2; Aspartate Amino Transferase 11 U/L (15-37); BUN Creatinine Ratio 5.3; Bilirubin Total 0.3 mg/dL (0.2-1.0); Calcium 9.4 mg/dL (8.5-10.1); Carbon Dioxide 28.9 mmol/L (21.0-32.0); Chloride 103 mmol/L (98-107); Estimated GFR (African America >60 (>=60 mL/min/1.73m^2); Estimated GFR (Non-African Ame >60 (>=60 mL/min/1.73m^2); Glucose 85 mg/dL (74-106); Potassium 4.1 mmol/L (3.5-5.1); Sodium 139 mmol/L (136-145)
[2024-08-01 15:40] LABS: Globulin 4.2 g/dL; Total Protein 8.2 g/dL (6.4-8.2)
[2024-08-01 15:41] LABS: Bilirubin Urine NEGATIVE (NEGATIVE); Blood Urine LARGE (NEGATIVE); Clarity Urine SL CLOUDY (CLEAR); Color Urine LT. YELLOW (YELLOW); Glucose Urine UA NEGATIVE (NEGATIVE); Ketones Urine NEGATIVE (NEGATIVE); Leukocyte Esterase Urine MODERATE (NEGATIVE); Nitrite Urine NEGATIVE (NEGATIVE); Protein Urine NEGATIVE (NEG/TRACE); Urobilinogen Urine 0.2 EU/dL (0.2-1.0)
[2024-08-01 15:52] LABS: Bacteria Urine SMALL #/HPF (NONE SEEN); Crystals Seen? None Seen #/HPF (None Seen); Mucus Urine NONE SEEN (NONE SEEN); RBC Urine 20-50 #/HPF (0-2); Squamous Epithelial Cell Urine FEW #/LPF (NONE/RARE)
[2024-08-01 15:53] LABS: Cast Seen? NONE SEEN #/LPF (NONE SEEN); Urine Culture Indicated YES
[2024-08-01 15:58] LABS: Amphetamine Screen Urine NEGATIVE (NEGATIVE); Barbiturates Screen Urine NEGATIVE (NEGATIVE); Benzodiazepines Screen Urine NEGATIVE (NEGATIVE); Buprenorphine Screen Urine NEGATIVE (NEGATIVE); Cannabinoid Screen Urine NEGATIVE (NEGATIVE); Cocaine Screen Urine NEGATIVE (NEGATIVE); Methadone Screen Urine NEGATIVE (NEGATIVE); Methamphetamines Screen Urine NEGATIVE (NEGATIVE); Opiate Screen Urine POSITIVE (NEGATIVE); Oxycodone Screen Urine NEGATIVE (NEGATIVE); Phencyclidine Screen Urine NEGATIVE (NEGATIVE); Tricyclic Antidepressant Urine POSITIVE (NEGATIVE)
[2024-08-01] MEDS: DICYCLOMINE HCL 10 MG CAPSULE 20 MG PO (16:28)
[2024-08-01 16:37] VITALS: PULSE 100; O2SAT 100
== END 2024-08-01 16:40 | disposition home or self-care (01) ==
PROVIDERS: Physician Assistant; Emergency Provider Emergency Medicine
DX: N39.0 Urinary tract infection, site not specified (principal); R10.11 Right upper quadrant pain; G89.29 Other chronic pain
CPT/HCPCS: 36415; 76705; 80053; 80307; 81001; 83605; 83690; 84703; 85025; 85610; 87086; 96361; 96374; 96375; 96376; 99285; G0328; J1171; J1200; J2405

== ENCOUNTER 2024-08-29 17:15 | Emergency (ER) | payer MEDICAID, SELFPAY ==
[2024-08-29 17:30] VITALS: BP 108/86; PULSE 111; TEMP 36.8; O2SAT 100; BMI 34.9
--- NOTE | 2024-08-29 18:45 | CT_ITS ---
The [address] [address] Patient Name: FRANCES BERMEO MRN: [id number] date: 1990 Sex: F Assigned Patient Location: ER Current Patient Location: ER Accession/Order Number: [id number] Exam Date: 08/29/2024 19:30 Report Date: 08/29/2024 19:47 At the request of: CAROLA MCCLURE Procedure: CT abdomen pelvis wo con EXAM: CT scan of the abdomen and pelvis without contrast. Dose reduction technique used: Automated exposure control and/or adjustment of the mA and/or kV according to patient size and/or use of iterative reconstruction technique. REASON FOR EXAM: RUQ abd pain COMPARISON: CT scan dated 08/02/2024 FINDINGS: Right adrenal mass which has a substantial component of fat within it measures 4.4 x 3.5 cm. Cholecystectomy. No renal, ureteral or bladder calculi. No hydronephrosis. Normal appendix. No free fluid in the abdomen or pelvis. No free intraperitoneal air. No dilated or thickened loops of small bowel or colon. Liver, pancreas, spleen, bilateral kidneys, and bilateral adrenal glands are otherwise unremarkable within the limitations of noncontrast CT. No lymphadenopathy in the abdomen or pelvis. Remainder unremarkable. CT/CT abdomen pelvis wo con IMPRESSION: 1. No acute abnormalities in the abdomen or pelvis. 2. Right adrenal myelolipoma measuring up to 4.4 cm. Electronically authenticated by: SHMUEL GONZALEZ Date: 08/29/2024 19:47
[2024-08-29 19:02] LABS: Eosinophils Absolute Auto 0.1 10^3/uL (0.0-0.7); Eosinophils Percent Auto 1.3 % (0.9-7.0); Hematocrit 38.3 % (36.0-48.0); Hemoglobin 11.7 g/dL (12.0-16.0); Immature Granulocytes Abs Auto 0.01 10^3/uL (0.00-0.03); Immature Granulocytes Pct Auto 0.2 % (0.0-0.5); Lymphocytes Absolute Auto 1.1 10^3/uL (1.2-3.8); Lymphocytes Percent Auto 20.9 % (20.5-60.0); Mean Corpuscular HGB Conc 30.5 g/dL (29.9-35.2); Mean Corpuscular Hemoglobin 25.3 pg (26.7-34.0); Mean Corpuscular Volume 82.9 fL (81.0-99.0); Mean Platelet Volume 8.7 fL (9.5-13.5); Monocytes Absolute Auto 0.5 10^3/uL (0.3-0.8); Monocytes Percent Auto 8.5 % (1.7-12.0); Neutrophils Absolute Auto 3.7 10^3/uL (1.4-6.5); Neutrophils Percent Auto 69.1 % (43.0-75.0); Platelet Count 237 10^3/uL (150-450); Red Blood Count 4.62 10^6/uL (4.20-5.40); Red Cell Distribution Width 13.4 % (11.0-15.0); White Blood Count 5.3 10^3/uL (4.0-11.0)
[2024-08-29 19:03] LABS: Bilirubin Urine NEGATIVE (NEGATIVE); Blood Urine SMALL (NEGATIVE); Clarity Urine CLEAR (CLEAR); Color Urine LT. YELLOW (YELLOW); Glucose Urine UA NEGATIVE (NEGATIVE); Ketones Urine NEGATIVE (NEGATIVE); Leukocyte Esterase Urine TRACE (NEGATIVE); Nitrite Urine NEGATIVE (NEGATIVE); Protein Urine NEGATIVE (NEG/TRACE); Specific Gravity Urine 1.015 (1.005-1.025); Urobilinogen Urine 0.2 EU/dL (0.2-1.0)
[2024-08-29] MEDS: ONDANSETRON PF 4 MG/2 ML VIAL IV (19:09)
[2024-08-29] MEDS: MORPHINE SULFATE 4 MG/ML VIAL IV (19:09)
[2024-08-29] MEDS: 0.9 % SODIUM CHLORIDE 1,000 ML 999 ML IV (19:09)
[2024-08-29 19:14] LABS: RBC Urine 0-2 #/HPF (0-2)
[2024-08-29 19:15] LABS: Bacteria Urine SMALL #/HPF (NONE SEEN); Cast Seen? NONE SEEN #/LPF (NONE SEEN); Crystals Seen? None Seen #/HPF (None Seen); Mucus Urine NONE SEEN (NONE SEEN); Squamous Epithelial Cell Urine MODERATE #/LPF (NONE/RARE); Urine Culture Indicated YES
[2024-08-29 19:24] LABS: HCG Qualitative NEGATIVE (NEGATIVE); Internal Control Within Normal Limits
[2024-08-29 19:28] LABS: Alanine Aminotransferase 19 U/L (14-59); Albumin Globulin Ratio 0.9; Alkaline Phosphatase 89 U/L (46-116); Anion Gap 13.5; Aspartate Amino Transferase 13 U/L (15-37); BUN Creatinine Ratio 5.8; Bilirubin Total 0.3 mg/dL (0.2-1.0); Calcium 9.1 mg/dL (8.5-10.1); Carbon Dioxide 28.1 mmol/L (21.0-32.0); Chloride 102 mmol/L (98-107); Estimated GFR (African America >60 (>=60 mL/min/1.73m^2); Estimated GFR (Non-African Ame >60 (>=60 mL/min/1.73m^2); Globulin 4.3 g/dL; Glucose 86 mg/dL (74-106); Magnesium 2.2 mg/dL (1.8-2.4); Potassium 3.6 mmol/L (3.5-5.1); Sodium 140 mmol/L (136-145); Total Protein 8.3 g/dL (6.4-8.2)
[2024-08-29] MEDS: HYDROMORPHONE HCL 0.5 MG/0.5 ML SYRINGE IM ×2 (20:18→21:23)
[2024-08-29] MEDS: TIZANIDINE HCL 4 MG TABLET PO (20:18)
[2024-08-29] MEDS: ONDANSETRON 4 MG RAPDIS TABLET SL (20:41)
--- NOTE | 2024-08-29 21:27 | ED_ITS ---
HPI - Abdominal Pain General Chief Complaint: Abdominal Pain Stated Complaint: ABDOMINAL PAIN, BLOOD IN URINE Time Seen by Provider: 08/29/24 18:31 Source: patient Mode of arrival: walk-in Limitations: no limitations History of Present Illness HPI narrative: 33-year-old female presents to the emergency department with son with complaint of abdominal pain. Locates to the right upper quadrant with some radiation into her back. Onset yesterday with worsening into today. Has had associated nausea and vomiting. Denies fever, chills, diarrhea. History of cholecystectomy. Quality:?Sharp Severity:?Moderate Timing:?Constant, waxing and waning Context: Normal setting and activity? Modifying factors:?Pain worse with palpation, changes in position Associated symptoms: As above Related Data Home Medications ?Medication ?Instructions ?Recorded ?Confirmed cyclobenzaprine 10 mg tablet 10 mg PO TID 08/01/24 08/01/24 medroxyprogesterone 10 mg tablet 10 mg PO BID 08/01/24 08/01/24 (Provera) Previous Rx's ?Medication ?Instructions ?Recorded ondansetron 4 mg disintegrating 4 mg PO DAILY PRN nausea and 07/26/24 tablet vomiting #15 tabs ciprofloxacin HCl 500 mg tablet 500 mg PO BID 5 days #10 tabs 08/01/24 (Cipro) hyoscyamine sulfate 0.125 mg 0.125 mg PO Q6H PRN abdominal pain 08/01/24 tablet (Levsin) #12 tabs promethazine 25 mg tablet 25 mg PO Q6H PRN nausea and 08/01/24 vomiting #12 tabs hydrocodone 5 mg-acetaminophen 325 1 tab PO Q8H PRN pain 3 days #8 08/29/24 mg tablet tabs hyoscyamine sulfate 0.125 mg 0.125 mg PO Q8H PRN spasms #10 tabs 08/29/24 tablet (Levsin) ondansetron 4 mg disintegrating 4 mg PO Q8H PRN nausea and 08/29/24 tablet vomiting #10 tabs tizanidine 4 mg capsule 4 mg PO TID PRN muscle spasticity 08/29/24 #14 caps Allergies Allergy/AdvReac Type Severity Reaction Status Date / Time ibuprofen Allergy Severe Hives Verified 08/29/24 17:30 Iodinated Contrast Media Allergy Severe Hives Verified 08/29/24 17:41 ketamine Allergy Severe hives Verified 08/29/24 17:30 ketorolac (From Toradol) Allergy Severe Hives Verified 08/29/24 17:30 aspirin AdvReac Severe Hives Verified 08/29/24 17:30 droperidol AdvReac Intermediate Hallucinati Verified 08/29/24 17:30 ng haloperidol (From Haldol) AdvReac Intermediate Hallucinati Verified 08/29/24 17:30 ng metoclopramide (From Reglan) AdvReac Intermediate Hallucinati Verified 08/29/24 17:30 ng prochlorperazine (From AdvReac Intermediate Hallucinati Verified 08/29/24 17:30 Compazine) ng Review of Systems ROS Narrative CONST: Denies any fever, chills RESP: Denies any shortness of breath CV: Denies any chest pain GI: +abd pain.? + nausea, vomiting. Denies diarrhea. : +Right flank pain. Denies dysuria MS: + back pain SKIN: Denies any color change, rash NEURO: Denies numbness, weakness PSYCHIATRIC: Denies confusion, agitation PFSH PFSH Medical History History of biliary stent insertion ?Z98.890 - Other specified postprocedural states (ICD-10) Pancreatitis ?K85.90 - Acute pancreatitis without necrosis or infection, unspecified (ICD- 10) Social History Little interest or pleasure in doing things: not at all Feeling down, depressed, or hopeless: not at all Exam Narrative Exam Narrative: Vital signs reviewed Nurses notes noted CONST: Nontoxic, well appearing, well nourished, in no distress.? No d iaphoresis.?? HENT: normocephalic, atraumatic, moist mucous membrane, no abnormalities of the nose noted, hearing normal EYES: normal appearing conjunctiva, no apparent discharge bilat NECK: normal appearance CV: normal rate, regular rhythm, no murmur RESP: normal effort, speaking in complete sentences. Lung sounds clear and equal bilat.? No wheezes, rales, rhonchi GI: normal bowel sounds, soft, no distension, +tenderness:RUQ. No rebound or guarding : + right CVA tenderness MS: no edema, tenderness SKIN: no pallor NEURO: A&Ox 3, no focal findings PSYCH: normal mood, affect Constitutional Vital Signs, click to edit/add: Last Vital Signs Temp 98.3 F 08/29/24 17:30 Pulse 111 H 08/29/24 17:30 Resp 20 08/29/24 17:30 BP 108/86 08/29/24 17:30 Pulse Ox 100 08/29/24 17:30 O2 Del Method Room Air 08/29/24 17:30 Course Reevaluation(s) Reevaluation #1: Patient reports improvement of pain. Discussed with patient results, plan, and disposition. She is agreeable. Vital Signs Vital signs: Vital Signs Temperature 98.3 F 08/29/24 17:30 Pulse Rate 111 H 08/29/24 17:30 Respiratory Rate 20 08/29/24 17:30 Blood Pressure 108/86 08/29/24 17:30 Pulse Oximetry 100 08/29/24 17:30 Oxygen Delivery Method Room Air 08/29/24 17:30 Temperature 98.3 F 08/29/24 17:30 Pulse Rate 111 H 08/29/24 17:30 Respiratory Rate 20 08/29/24 17:30 Blood Pressure 108/86 08/29/24 17:30 Pulse Oximetry 100 08/29/24 17:30 Oxygen Delivery Method Room Air 08/29/24 17:30 MDM - Abdominal Pain MDM Narrative Medical decision making narrative: This is a pleasant 33-year-old female who presents to the emergency department for evaluation of right upper quadrant abdominal pain, nausea, vomiting. History of cholecystectomy, kidney stones. On arrival, afebrile, vital signs are stable Exam, nontoxic, well-appearing patient in no distress. Heart regular rate and rhythm. Lung sounds clear and equal bilaterally. Abdomen soft with right upper quadrant tenderness. No rebound or guarding. She does have right CVA tenderness as well. IV access established, blood work was drawn and sent to the lab. She was given IV fluids, pain medicines. Labs reveal no leukocytosis, anemia, thrombocytopenia, electrolyte imbalance, renal impairment. Glucose 86. LFTs, lipase unremarkable. test was negative. Urinalysis did not show evidence of infection. CT abdomen pelvis imaging, per radiologist revealed no acute findings. Uncertain etiology of her pain at this time. Favor nonspecific abdominal pain, consider musculoskeletal Kidney stone less likely based on imaging UTI, pyelonephritis less likely based on lab testing, CT imaging Bowel obstruction less likely based on imaging History and Record Review Additional records reviewed: No records available Additional Tests and Interventions IV Fluids:hydration/inability to tolerate PO Re-Evaluation See ED course Disposition ? The patient was discharged. Prescriptions sent to pharmacy: Tizanidine, Zofran, limited supply of [place] Plan: Patient will be discharged to home.? Condition at time of disposition: stable, improved.? Advised to follow up with primary provider. Advised to return for any worsening and/or development of new, concerning signs or symptoms PLEASE NOTE: Portions of the medical record may have been produced using electr onic yarn weigher and may contain errors with respect to translation of words which may not have been identified prior to finalization of the chart. Medical Records Attestation: I reviewed the patient's medical records. Lab Data Attestation: I reviewed the patient's lab results. Labs: Lab Results 08/29/24 08/29/24 Range/Units 18:30 18:39 WBC 5.3 (4.0-11.0) 10^3/uL RBC 4.62 (4.20-5.40) 10^6/uL Hgb 11.7 L (12.0-16.0) g/dL Hct 38.3 (36.0-48.0) % MCV 82.9 (81.0-99.0) fL MCH 25.3 L (26.7-34.0) pg MCHC 30.5 (29.9-35.2) g/dL RDW 13.4 (11.0-15.0) % Plt Count 237 (150-450) 10^3/uL MPV 8.7 L (9.5-13.5) fL Neut % (Auto) 69.1 (43.0-75.0) % Lymph % (Auto) 20.9 (20.5-60.0) % [place] % (Auto) 8.5 (1.7-12.0) % Eos % (Auto) 1.3 (0.9-7.0) % Baso % (Auto) 0.0 L (0.2-2.0) % Neut # (Auto) 3.7 (1.4-6.5) 10^3/uL Lymph # (Auto) 1.1 L (1.2-3.8) 10^3/uL [place] # (Auto) 0.5 (0.3-0.8) 10^3/uL Eos # (Auto) 0.1 (0.0-0.7) 10^3/uL Baso # (Auto) 0.0 (0.0-0.1) 10^3/uL Abs Immat Gran (auto) 0.01 (0.00-0.03) 10^3/uL Imm/Tot Granulo (auto) 0.2 (0.0-0.5) % Sodium 140 (136-145) mmol/L Potassium 3.6 (3.5-5.1) mmol/L Chloride 102 (98-107) mmol/L Carbon Dioxide 28.1 (21.0-32.0) mmol/L Anion Gap 13.5 BUN 4.0 L (7.0-18.0) mg/dL Creatinine 0.69 (0.55-1.02) mg/dL Est GFR ( Amer) >60 (>=60 mL/min/1.73m^2) Est GFR (Non-Af Amer) >60 (>=60 mL/min/1.73m^2) BUN/Creatinine Ratio 5.8 Glucose 86 (74-106) mg/dL Calcium 9.1 (8.5-10.1) mg/dL Magnesium 2.2 (1.8-2.4) mg/dL Total Bilirubin 0.3 (0.2-1.0) mg/dL AST 13 L (15-37) U/L ALT 19 (14-59) U/L Alkaline Phosphatase 89 (46-116) U/L Total Protein 8.3 H (6.4-8.2) g/dL Albumin 4.0 (3.4-5.0) g/dL Globulin 4.3 g/dL Albumin/Globulin Ratio 0.9 Lipase 21.0 (16.0-77.0) U/L Serum HCG, Qual Negative (NEGATIVE) Urine Color Lt. yellow (YELLOW) Urine Clarity Clear (CLEAR) Urine pH 6.0 (5.0-9.0) Ur Specific [place] 1.015 (1.005-1.025) Urine Protein Negative (NEG/TRACE) mg/dL Urine Glucose (UA) Negative (NEGATIVE) mg/dL Urine Ketones Negative (NEGATIVE) mg/dL Urine Occult Blood Small A (NEGATIVE) Urine Nitrite Negative (NEGATIVE) Urine Bilirubin Negative (NEGATIVE) Urine Urobilinogen 0.2 (0.2-1.0) EU/dL Ur Leukocyte Esterase Trace A (NEGATIVE) Urine RBC 0-2 (0-2) #/HPF Urine WBC 2-5 A (NONE SEEN) #/HPF Ur Squamous Epith Cells Moderate A (NONE/RARE) #/LPF Urine Crystals None seen (None Seen) #/HPF Urine Bacteria Small A (NONE SEEN) #/HPF Urine Casts None seen (NONE SEEN) #/LPF Urine Mucus None seen (NONE SEEN) Ur Culture Indicated? Yes Imaging Data CT scan - abdomen: Radiologist's impression: ITS Impressions Abdomen/Pelvis CT 08/29/24 18:45 IMPRESSION: 1. No acute abnormalities in the abdomen or pelvis. 2. Right adrenal myelolipoma measuring up to 4.4 cm. Electronically authenticated by: SHMUEL GONZALEZ Date: 08/29/2024 19:47 Discharge Plan Discharge Chief Complaint: Abdominal Pain Clinical Impression: Nonspecific abdominal pain Nausea & vomiting Qualifiers: Vomiting type: unspecified Qualified Code(s): R11.2 - Nausea with vomiting, unspecified Patient Disposition: Home, Self-Care Condition: Good Mode of Transportation: Private Vehicle Prescriptions / Home Meds: New hydrocodone-acetaminophen 5-325 mg tablet 1 tab PO Q8H PRN (Reason: pain) 3 Days Qty: 8 0RF hyoscyamine sulfate [Levsin] 0.125 mg tablet 0.125 mg PO Q8H PRN (Reason: spasms) Qty: 10 0RF ondansetron 4 mg tablet,disintegrating 4 mg PO Q8H PRN (Reason: nausea and vomiting) Qty: 10 0RF tizanidine 4 mg capsule 4 mg PO TID PRN (Reason: muscle spasticity) Qty: 14 0RF No Action ondansetron 4 mg tablet,disintegrating 4 mg PO DAILY PRN (Reason: nausea and vomiting) Qty: 15 0RF cyclobenzaprine 10 mg tablet 10 mg PO TID medroxyprogesterone [Provera] 10 mg tablet 10 mg PO BID ciprofloxacin HCl [Cipro] 500 mg tablet 500 mg PO BID 5 Days Qty: 10 0RF hyoscyamine sulfate [Levsin] 0.125 mg tablet 0.125 mg PO Q6H PRN (Reason: abdominal pain) Qty: 12 0RF promethazine 25 mg tablet 25 mg PO Q6H PRN (Reason: nausea and vomiting) Qty: 12 0RF Print Language: [place] Instructions: Abdominal Pain (ED) Referrals: Physician,Non-Staff, MD [Primary Care Provider] - 1 week Discharge Date/Time: 08/29/24 21:31
== END 2024-08-29 21:31 | disposition home or self-care (01) ==
PROVIDERS: Physician Assistant; Emergency Provider Emergency Medicine
DX: R10.11 Right upper quadrant pain (principal); R11.2 Nausea with vomiting, unspecified; Z90.49 Acquired absence of other specified parts of digestive tract; Z87.442 Personal history of urinary calculi; D17.79 Benign lipomatous neoplasm of other sites
CPT/HCPCS: 36415; 74176; 80053; 81001; 83690; 83735; 84703; 85025; 87086; 96372; 96374; 96375; 99285; J1171; J2270; J2405; Q0162

== ENCOUNTER 2024-09-05 08:11 | Emergency (ER) | payer MEDICAID, SELFPAY ==
[2024-09-05 08:18] VITALS: BP 167/78; PULSE 118; TEMP 37; O2SAT 100; BMI 34.9
--- NOTE | 2024-09-05 09:02 | ED.ABDPAIN1 ---
HPI - Abdominal Pain General Chief Complaint: Abdominal Pain Stated Complaint: abdominal pain Time Seen by Provider: 09/05/24 08:35 Source: patient Mode of arrival: walk-in Limitations: no limitations History of Present Illness HPI narrative: 33-year-old female to the emergency department chief complaint of chronic abdominal pain. Patient reports that she has chronic right upper quadrant/epigastric abdominal pain. She has a remote history of acute cholecystitis with pancreatitis status postcholecystectomy. She reports that she is from [place] and has a GI physician and primary care out there who help manage this. She is currently staying at the [facility] and in [place]. Patient reports that she was seen on the here at [place] for this had negative CT imaging and labs. She is given some symptomatic medications for home and told to follow-up with her doctor. She then went back up to [place] and was seen on the at [facility] where she again underwent imaging and labs which were found to be negative. She was instructed follow-up with her doctor. She has not yet followed up with her doctor. Patient reports that she continues to have nausea and upper abdominal pain. Related Data Home Medications ?Medication ?Instructions ?Recorded ?Confirmed medroxyprogesterone 10 mg tablet 10 mg PO BID 08/01/24 09/05/24 (Provera) Previous Rx's ?Medication ?Instructions ?Recorded ondansetron 4 mg disintegrating 4 mg PO DAILY PRN nausea and 07/26/24 tablet vomiting #15 tabs hyoscyamine sulfate 0.125 mg 0.125 mg PO Q6H PRN abdominal pain 08/01/24 tablet (Levsin) #12 tabs hydrocodone 5 mg-acetaminophen 325 1 tab PO Q8H PRN pain 3 days #8 08/29/24 mg tablet tabs hyoscyamine sulfate 0.125 mg 0.125 mg PO Q8H PRN spasms #10 tabs 08/29/24 tablet (Levsin) ondansetron 4 mg disintegrating 4 mg PO Q8H PRN nausea and 08/29/24 tablet vomiting #10 tabs tizanidine 4 mg capsule 4 mg PO TID PRN muscle spasticity 08/29/24 #14 caps Allergies Allergy/AdvReac Type Severity Reaction Status Date / Time ibuprofen Allergy Severe Hives Verified 09/05/24 08:17 Iodinated Contrast Media Allergy Severe Hives Verified 09/05/24 08:17 ketamine Allergy Severe hives Verified 09/05/24 08:17 ketorolac (From Toradol) Allergy Severe Hives Verified 09/05/24 08:17 aspirin AdvReac Severe Hives Verified 09/05/24 08:17 droperidol AdvReac Intermediate Hallucinati Verified 08/29/24 17:30 ng haloperidol (From Haldol) AdvReac Intermediate Hallucinati Verified 08/29/24 17:30 ng metoclopramide (From Reglan) AdvReac Intermediate Hallucinati Verified 08/29/24 17:30 ng prochlorperazine (From AdvReac Intermediate Hallucinati Verified 08/29/24 17:30 Compazine) ng Review of Systems ROS Status of ROS 10 or more systems reviewed and unremarkable except as noted in history and below [facility] Medical History History of biliary stent insertion ?Z98.890 - Other specified postprocedural states (ICD-10) Pancreatitis ?K85.90 - Acute pancreatitis without necrosis or infection, unspecified (ICD-10) Social History Little interest or pleasure in doing things: not at all Feeling down, depressed, or hopeless: not at all Exam Narrative Exam Narrative: VITALS: I have reviewed the triage vital signs. GENERAL: Well developed, well appearing adult in no acute distress. NEURO: Alert and oriented. Moves all extremities. Face is symmetric and expressive. EYES: PERRL. No scleral icterus or conjunctival injection. No discharge. HENT: Normocephalic, atraumatic. Hearing is grossly intact. Nares grossly patent and without discharge. Mucous membranes moist. NECK: No JVD. Patient moves neck without restriction. CARDIO: Rhythm regular. Normal rate. No murmur, rub, or gallop. Pulses equal bilaterally in the upper and lower extremity. No lower extremity edema. PULM: Lungs clear to auscultation in all levy. No wheezes, rales, or rhonchi. No conversational dyspnea. No splinting, stridor, or accessory muscle use. GI/: Abdomen is soft and non-tender. Normoactive bowel sounds. EXTREMITIES: Symmetric muscle bulk. No joint swelling. No clubbing, cyanosis, or deformity. SKIN: Warm and dry. Normal turgor. No rash or lesions appreciated. PSYCH: Mood, affect, and interaction is appropriate to the setting. Constitutional Vital Signs, click to edit/add: Last Vital Signs Temp 98.6 F 09/05/24 08:18 Pulse 118 H 09/05/24 08:18 Resp 18 09/05/24 08:18 BP 167/78 H 09/05/24 08:18 Pulse Ox 100 09/05/24 08:18 O2 Del Method Room Air 09/05/24 08:18 Course Vital Signs Vital signs: Vital Signs Temperature 98.6 F 09/05/24 08:18 Pulse Rate 118 H 09/05/24 08:18 Respiratory Rate 18 09/05/24 08:18 Blood Pressure 167/78 H 09/05/24 08:18 Pulse Oximetry 100 09/05/24 08:18 Oxygen Delivery Method Room Air 09/05/24 08:18 Temperature 98.6 F 09/05/24 08:18 Pulse Rate 118 H 09/05/24 08:18 Respiratory Rate 18 09/05/24 08:18 Blood Pressure 167/78 H 09/05/24 08:18 Pulse Oximetry 100 09/05/24 08:18 Oxygen Delivery Method Room Air 09/05/24 08:18 MDM - Abdominal Pain MDM Narrative Medical decision making narrative: Well-appearing 33-year-old female to the emergency department chief complaint of chronic upper abdominal pain. Vital stable, the patient is afebrile. Her abdominal examination is benign. She is currently in the care of a great school-aged child in the room. Clinisync was reviewed. Patient has a prolific history of ED visits for this complaint. She has had several health contacts in the last 7 days including multiple negative ED workups for this complaint. I discussed with the patient. I offered screening labs, EKG, abdominal series, Aparna and Gerardo. If negative she may follow-up with her primary care team in [place] where she receives her care. Given the chronic nature of this complaint, multiple ED visits across multiple counties, currently caring for a great school-aged child did not believe that any controlled substances are indicated or appropriate. She agrees with this plan. Nursing staff notified me that the patient wanted to leave and hurry. She eloped before I was able to get back to the room to discuss with her. Medical Records Attestation: I reviewed the patient's medical records. Discharge Plan Discharge Stand Alone Forms: Portal Instructions Chief Complaint: Abdominal Pain Clinical Impression: Chronic abdominal pain, Eloped from emergency department Patient Disposition: Left Against Medical Advice Prescriptions / Home Meds: No Action ondansetron 4 mg tablet,disintegrating 4 mg PO DAILY PRN (Reason: nausea and vomiting) Qty: 15 0RF medroxyprogesterone [Provera] 10 mg tablet 10 mg PO BID hyoscyamine sulfate [Levsin] 0.125 mg tablet 0.125 mg PO Q6H PRN (Reason: abdominal pain) Qty: 12 0RF hydrocodone-acetaminophen 5-325 mg tablet 1 tab PO Q8H PRN (Reason: pain) 3 Days Qty: 8 0RF hyoscyamine sulfate [Levsin] 0.125 mg tablet 0.125 mg PO Q8H PRN (Reason: spasms) Qty: 10 0RF ondansetron 4 mg tablet,disintegrating 4 mg PO Q8H PRN (Reason: nausea and vomiting) Qty: 10 0RF tizanidine 4 mg capsule 4 mg PO TID PRN (Reason: muscle spasticity) Qty: 14 0RF Print Language: Gabonese Instructions: Abdominal Pain (ED) Referrals: Physician,Non-Staff, MD [Primary Care Provider] - 1 week Discharge Date/Time: 09/05/24 09:20
== END 2024-09-05 09:20 | disposition left against medical advice (07) ==
PROVIDERS: Emergency Provider Student in an Organized Health Care Education/Training Program
DX: R10.11 Right upper quadrant pain (principal); Z53.29 Procedure and treatment not carried out because of patient's decision for other reasons; R10.13 Epigastric pain; G89.29 Other chronic pain; Z90.49 Acquired absence of other specified parts of digestive tract
CPT/HCPCS: 80053; 81001; 83690; 84703; 99284